=== PATIENT | male | born 1970 | race Hispanic/Latino ===

== ENCOUNTER 2016-11-23 15:03 | Inpatient (IN) | payer MEDICAID, OTHER ==
[2016-11-23 16:55] LABS: EOS # 0.4 K/uL (0.0-0.7); HEMOGLOBIN 14.2 g/dL (12.0-18.0); LYMPH # 3.3 K/uL (1.0-4.3); MONO # 0.8 K/uL (0.0-0.8); WHITE BLOOD COUNT 9.1 K/uL (4.8-10.8)
[2016-11-23 16:58] LABS: BASO % 0.5 % (0.0-2.0); LYMPH % 36.4 % (20.0-40.0); MEAN CELL VOLUME 97.5 fL (80.0-94.0); MEAN CORPUSCULAR HEMOGLOBIN 33.5 pg (27.0-31.0); MEAN CORPUSCULAR HGB CONC 34.4 g/dL (33.0-37.0); MEAN PLATELET VOLUME 9.6 fL (7.2-11.7); MONO % 8.7 % (0.0-10.0); NEUT # 4.6 K/uL (1.8-7.0); NEUT % 50.4 % (50.0-75.0); NRBC % 0.1 % (0.0-2.0); RBC 4.22 Mil/uL (4.40-5.90); RED CELL DISTRIBUTION WIDTH 13.3 % (11.5-14.5)
[2016-11-23 17:00] LABS: URINE BILIRUBIN NEGATIVE (NEGATIVE); URINE BLOOD NEGATIVE (NEGATIVE); URINE CLARITY Clear (Clear); URINE COLOR Yellow (YELLOW); URINE GLUCOSE (UA) NORMAL (Normal); URINE LEUKOCYTE ESTERASE NEG Leu/uL (Negative); URINE NITRATE NEGATIVE (NEGATIVE); URINE PROTEIN NEGATIVE (NEGATIVE)
[2016-11-23 17:04] LABS: ALBUMIN 4.4 g/dL (3.5-5.0)
[2016-11-23 17:06] LABS: GFR AFRICAN-AMERICAN > 60; GFR NON-AFRICAN AMERICAN > 60
[2016-11-23 17:07] LABS: ALB/GLOB RATIO 0.9 (1.0-2.1); ALT/SGPT 41 U/L (21-72); AST/SGOT 30 U/L (17-59); BLOOD UREA NITROGEN 11 mg/dL (9-20)
[2016-11-23 17:08] LABS: CALCIUM 9.2 mg/dl (8.6-10.4)
[2016-11-23 17:21] LABS: BENZODIAZEPINES, UR POSITIVE (NEGATIVE)
[2016-11-23 17:22] LABS: BARBITURATES, UR NEGATIVE (NEGATIVE)
[2016-11-23 17:26] LABS: OPIATES, UR POSITIVE (NEGATIVE)
[2016-11-23 17:27] LABS: PHENCYCLIDINE, UR NEGATIVE (NEGATIVE)
--- NOTE | 2016-11-23 18:21 | C.PDOC ---
History Of Present Illness Pt is here requesting detox from Alcohol and Heroin. Time Seen by Provider: 11/23/16 15:41 Chief Complaint (Nursing): Substance Abuse History Per: Patient History/Exam Limitations: intoxication Onset/Duration Of Symptoms: Days Current Symptoms Are (Timing): Still Present Suicide/Self Injury Attempted (Context): None Modifying Factor(s): Alcohol, Narcotics Severity: Moderate Associated Symptoms: denies: Suicidal Thoughts, Suicidal Plan Additional History Per: Prior Records Past Medical History Reviewed: Historical Data, Nursing Documentation, Vital Signs Vital Signs: Last Vital Signs Temp 98 F 11/23/16 15:13 Pulse 89 11/23/16 15:13 Resp 16 11/23/16 15:13 BP 114/78 11/23/16 15:13 Pulse Ox 95 11/23/16 18:21 - Medical History PMH: Anxiety, Hepatitis (Hep.C) - [facility] DETOXIFICATION SERVICES FOR SUBSTANCE ABUSE TREATMENT (02/11/16) INDIVIDUAL PSYCHOTHERAPY, SUPPORTIVE (02/11/16) Family History: States: Unknown Family Hx - Social History Hx Tobacco Use: Yes Hx Alcohol Use: Yes Hx Substance Use: Yes (IVDU Heroin) - Immunization History Hx Influenza Vaccination: No Hx Pneumococcal Vaccination: No Review Of Systems Constitutional: Negative for: Fever Cardiovascular: Negative for: Chest Pain Respiratory: Negative for: Shortness of Breath Gastrointestinal: Negative for: Vomiting Musculoskeletal: Negative for: Neck Pain Neurological: Negative for: Weakness, Seizures Physical Exam - Physical Exam Appears: Non-toxic, No Acute Distress Skin: Normal Color, Warm, Dry Head: Atraumatic, Normacephalic Eye(s): bilateral: PERRL, EOMI Neck: Normal ROM, Supple Cardiovascular: Rhythm Regular Respiratory: Normal Breath Sounds, No Accessory Muscle Use Gastrointestinal/Abdominal: Soft, No Tenderness Extremity: Normal ROM, Other (Track maldonado on arms) Neurological/Psych: Oriented x3, Normal Motor, Normal Sensation ED Course And Treatment - Laboratory Results Result Diagrams: 11/23/16 16:50 11/23/16 16:50 O2 Sat by Pulse Oximetry: 95 Pulse Ox Interpretation: Normal Progress Note: Pt is medically stable for detox admission. Disposition Counseled Patient/Family Regarding: Studies Performed, Diagnosis, Smoking Cessation - Disposition Disposition: HOSPITALIZED Disposition Time: 18:54 Condition: STABLE - Clinical Impression Clinical Impression: Alcohol use disorder, Opioid abuse Decision To Admit - Pt Status Changed To: Hospital Disposition Of: Inpatient - Admit Certification Admit to Inpatient:: After my assessment, the patient will require hospitalization for at least two midnights. This is because of the severity of symptoms shown, intensity of services needed, and/or the medical risk in this patient being treated as an outpatient. - InPatient: Physician Admission Certification: I certify that this patient requires 2 or more midnights of care for the following reason:: Detox. - . Bed Request Type: Detox Admitting Physician: Reagan Hood Patient Diagnosis: Alcohol use disorder, Opioid abuse
--- NOTE | 2016-11-23 19:34 | PCM.BM ---
<Myriam Goodean - Last Filed: 11/23/16 22:20> Treatment Plan Problems - Problems identified on initial assessmt opiate dependance Date Initiated: 11/23/16 Time Initiated: 19:32 Assessment reference: NA Status: Active Priority: 1 Problem 3 Date Initiated: 11/23/16 ineffective coping Date Initiated: 11/23/16 Time Initiated: 19:34 Assessment reference: NA Status: Active aalcohol dependance Date Initiated: 11/23/16 Time Initiated: 19:33 Assessment reference: NA Status: Active Priority: 2 Treatment assets and liabiliti Patient Assests: cooperative, ADL independent, cognitively intact, other Patient Liabilities: substance abuse - Milieu Protocol Maintain good personal hygiene: daily Encourage regular showers, daily Remind patient to perform daily oral care, daily Assist patient to perform ADL's Maintain personal safety: every shift Educate patient to report safety concerns to staff, every shift Monitor environment for contraband/sharps Medication safety: Monitor for expected outcome, potential side effects: every shift, Assess barriers to learning: every shift, Assess readiness for medication education: every shift <Wild Wyatt - Last Filed: 11/24/16 15:07> Treatment Plan Problems - Problems identified on initial assessmt opiate dependance Date Initiated: 11/23/16 Time Initiated: 19:32 Assessment reference: NA Status: Active Priority: 1 Problem 3 Date Initiated: 11/23/16 ineffective coping Date Initiated: 11/23/16 Time Initiated: 19:34 Assessment reference: NA Status: Active aalcohol dependance Date Initiated: 11/23/16 Time Initiated: 19:33 Assessment reference: NA Status: Active Priority: 2 Problem 2 Date Initiated: 11/23/16 Time Initiated: 19:33 Assessment reference: NA Status: Active Priority: 2 alcohol dependance Date Initiated: 11/23/16 - Diagnosis (1) Alcohol use disorder Status: Acute Interventions: 11/24/16 15:07 * Assess 7x/week regarding severity of withdrawal * Educate regarding risks, benefits, side effects and alternatives of medications * Use Motivational Interviewing for abstinence * Use CBT for relapse prevention * Medication management for withdrawal symptoms * Encourage medication assisted treatment * (2) Opioid abuse Status: Acute Interventions: 11/24/16 15:08 * Assess 7x/week regarding severity of withdrawal * Educate regarding risks, benefits, side effects and alternatives of medications * Use Motivational Interviewing for abstinence * Use CBT for relapse prevention * Medication management for withdrawal symptoms * Encourage medication assisted treatment * <Rosangela Meyer - Last Filed: 11/25/16 13:51> Family Contact Family involvement: German/SO not involved Family contact: Patient agrees to contact - Goals for Treatment Patient goals for treatment: Transition to Vivitrol shot for medication maintenance. Discharge/Continuing Care - Education Needs Education Needs: Patient Medication, Patient Diagnosis/Disease Process, Patient Coping Skills, Patient Anger Management skills, Patient Placement options, Patient Community resources - Discharge Discharge Criteria: Tolerates medication w/o severe side effects, Normal sleep pattern, No longer exhibiting s/s of withdrawal, Reduction of target symptoms Discharge to:: With Family - Treatment Team Participation Patient/Family/SO Statement: 11/25/16 13:50 "I wanna try Vivitrol" Discussed with Family/SO: No Was Patient/Family/SO present at Treatment Team Meeting: Yes
[2016-11-23] MEDS ORDERED: Buprenorphine Hydrochloride 2 mg SL ONE (20:15)
[2016-11-24] MEDS ORDERED: Buprenorphine Hydrochloride 2 mg SL ONE ×2 (01:10→02:10)
[2016-11-24] MEDS: Multiple Vitamins Tab PO SCH (10:43)
[2016-11-24] MEDS: Buprenorphine Hydrochloride 2 mg SL SCH (10:44)
--- NOTE | 2016-11-24 11:48 | PCM.PSYCH ---
Initial Psychiatric Evaluation - Initial Psychiatric Evaluation Type of Admission: Voluntary Legal Status: Capacity Chief Complaint (in patient's own words): "I want to detox from alcohol and heroin" History of Present Illness and Precipitating Events: The pt is seen, chart reviewed and case discussed. Mr Murray is a 46 yo male who presented to our ED requesting heroin and EtOH detox. Patient is currently experiencing opioid wxw sxs; he is shaking , yawning, sniffling, and complains of a severe headache. Patient states that about 6 months ago he relapsed with heroin use, and doesn't remember how long he was sober. Patient states he began abusing heroin at 26 years old, and averaged 10-15 bags/day. He also states that he drinks 2 pints/day of vodka, and unspecified amounts of wine and beer since he was a teenager. He's had 5-6 previous detox visits and 1 previous rehab attempt at the [facility] in [place]. Patient underwent 1 previous methadone treatment, at 90 mg dose, he states it was unsuccessful without specified reasons and quit the program a few years ago. Patient also states he tried Suboxone at 2x/day 8mg dose, but that it was unsuccessful due to legal issues with his physician and pharmacy. He denies hallucinations, suicidal/homicidal ideations. He denies depressive symptoms. He denies DT's or any seizure activity. Past Psychiatric Hx: Denies admissions or sergio attempt Other Medical Hx: - Hep C, untreated. Social and RADHA Hx: Lives in [place], smokes 1 pack of cigarettes/day; Denies cocaine, pcp, ecstasy, xananx, or marijuana usage; lives with his mother ; chemo; currently single and ; 2 children of 20 yrs old and 7 yrs old, the 7 yr old lives with patients sister; has 1 brother and 1 sister. Family Hx: brother abused EtOH and Heroin. Previous attempts at bringing brother to detox program were unsuccessful. Family Pyschiatric Hx: None reported Current Medications: Active Medications Generic Name Dose Route Start Last Admin Trade Name Freq PRN Reason Stop Dose Admin Buprenorphine HCl 8 mg 11/24/16 10:00 11/24/16 10:44 Subutex SL 11/28/16 09:59 8 mg DAILY AMINTA Administration Taper Chlordiazepoxide 25 mg 11/24/16 00:00 11/24/16 06:32 Librium PO 11/27/16 23:59 Not Given Q6 AMINTA Taper Chlordiazepoxide 25 mg 11/23/16 20:05 Librium PO Q4H PRN Alcohol Withdrawal Clonidine HCl 0.1 mg 11/24/16 10:00 Catapres PO Q8 PRN COWS Score More or Equal to 5 Folic Acid 1 mg 11/24/16 10:15 11/24/16 10:43 Folic Acid PO 1 mg DAILY AMINTA Administration Multivitamins 1 tab 11/24/16 10:15 11/24/16 10:43 Hexavitamin PO 1 tab DAILY AMINTA Administration Thiamine HCl 100 mg 11/24/16 10:15 11/24/16 10:43 Vitamin B1 Tab PO 100 mg DAILY AMINTA Administration Trazodone HCl 100 mg 11/24/16 20:05 Desyrel PO HS PRN Insomnia Past Psychiatric History - Past Psychiatric History Previous Treatment History: None Pertinent Medical Hx (Current Medical&Sleep Prob, Allergies): Allergies Allergy/AdvReac Type Severity Reaction Status Date / Time No Known Allergies Allergy Verified 11/23/16 15:16 Gabapentin [Neurontin] 400 mg PO TID #90 cap 02/16/16 Mirtazapine [Remeron] 30 mg PO HS #30 tab 02/16/16 QUEtiapine [Seroquel] 100 mg PO HS #30 tab 02/16/16 Sertraline [Zoloft] 100 mg PO DAILY #30 tab 02/16/16 Review of Systems - Constitutional Constitutional: Chills - EENT Additional comments: yawning, tearing - Neurological Neurological: As Per HPI, Headaches. absent: Convulsions, Tremor - Psychiatric Psychiatric: As Per HPI, Abnormal Sleep Pattern, Anxiety, Difficulty Concentrating, Irritability. absent: Hallucinations, Homicidal Ideation, Hopelessness, Suicidal Ideation Mental Status Examination - Personal Presentation Personal Presentation: Looks stated age - Affect Affect: Constricted - Motor Activity Motor Activity: Calm - Reliability in Providing Information Reliability in Providing Information: Fair Additional comments: Difficulty remembering periods of sobriety - Speech Speech: Disorganized - Mood Mood: Neutral - Formal Thought Process Formal Thought Process: No Impairment - Obsessions/Compulsions Obsessions: No Compulsions: No - Cognitive Functions Orientation: Person, Place, Situation, Time Sensorium: Drowsy Attention/Concentration: Easily distracted Abstract Thinking: Whitt Estimate of Intelligence: Average Judgement: Intact, as evidence by: Insight regarding need for hospitalization Memory: Recent intact, as evidence by: Ability to recall events of the day, Remote intact, as evidenced by: Abilit to recall sig. life events - Strength & Assets Inventory Strength & Assets Inventory: Cooperative - Limitations Limitations: Living alone DSM 5 DX - DSM 5 DSM 5 Diagnosis: Opioid withdrawal Opioid use disorder - severe Alcohol withdrawl Alcohol use disorder - severe - Recommended/Plan of Treatment Treatment Recommendations and Plan of Treatment: Subutex detox for opioids Librium detox for alcohol gabapentin for augmentation [place] and CBT Attend groups and activities Support and psychoeducation Consider MAT Refer to IOP and rehab Hep C f/u with GI 32 min Projected ELOS: 4 days Prognosis: Good with tx course - Smoking Cessation Smoking Cessation Initiated: No
[2016-11-25] MEDS: Multiple Vitamins Tab PO SCH (10:07)
[2016-11-25] MEDS: Buprenorphine Hydrochloride 2 mg SL SCH (10:11)
--- NOTE | 2016-11-25 12:35 | PCM.PYCHPN ---
Psychiatric Progress Note - Psychiatric Progress Note Patient seen today, length of contact: 16 min Patient Chief Complaint: "I am still withdrawing!" Problems Identified/Issues Discussed: The pt is seen, chart reviewed, case discussed with staff. Support given, CBT and ME used briefly No new symptoms reported, improving slowly and needs more time No SEs from medications, risks discussed. After care discussed briefly b/c he does not want to engage in conversations yet. Still in bed, slightly irate. Medication Change: Yes (Detox changes daily) Medical Record Reviewed: Yes Mental Status Examination - Cognitive Function Orientation: Person, Place, Situation, Time Memory: Intact Attention: Poor Concentration: Poor Association: WNL Fund of Knowledge: WNL - Mood Mood: Anxious, Other (irate) - Affect Affect: Constricted - Speech Speech: Appropriate - Formal Thought Process Formal Thought Process: No Impairment - Suicidal Ideation Suicidal Ideation: No - Homicidal Ideation Homicidal Ideation: No Goal/Treatment Plan - Goal/Treatment Plan Need for Continued Stay: Discharge may exacerbated symptoms, Severe functional impairment Progress Toward Problem(s) and Goals/Treatment Plan: Subutex detox for opioids Librium detox for alcohol gabapentin for augmentation [place] and CBT Attend groups and activities Support and psychoeducation Consider MAT Refer to IOP and rehab Hep C f/u with GI Estimated Date of D/C: 11/27/16
[2016-11-26] MEDS ORDERED: Buprenorphine Hydrochloride 2 mg SL PRN (08:47)
--- NOTE | 2016-11-26 08:47 | PCM.PYCHPN ---
Psychiatric Progress Note - Psychiatric Progress Note Patient seen today, length of contact: 17 min Patient Chief Complaint: "I can't sleep, I'm in pain" Problems Identified/Issues Discussed: The pt is seen, chart reviewed, case discussed with staff. c/o back pain, insomnia, withdrawal sxs Remeron added as it worked in the past Flexeril prn added and one extra dose of Sbx if needed MD and CBt used After care discussed Improving slowly Medication Change: Yes (Detox changes daily) Medical Record Reviewed: Yes Mental Status Examination - Cognitive Function Orientation: Person, Place, Situation, Time Memory: Intact Attention: Poor Concentration: Poor Association: WNL Fund of Knowledge: WNL - Mood Mood: Anxious, Other (irate) - Affect Affect: Constricted - Speech Speech: Appropriate - Formal Thought Process Formal Thought Process: No Impairment - Suicidal Ideation Suicidal Ideation: No - Homicidal Ideation Homicidal Ideation: No Goal/Treatment Plan - Goal/Treatment Plan Need for Continued Stay: Discharge may exacerbated symptoms, Severe functional impairment Progress Toward Problem(s) and Goals/Treatment Plan: Subutex detox for opioids Librium detox for alcohol gabapentin for augmentation, increased Remeron for insomnia and depressive sxs MD and CBT Attend groups and activities Support and psychoeducation Consider MAT Refer to IOP and rehab Hep C f/u with GI Estimated Date of D/C: 11/27/16
[2016-11-26] MEDS: Buprenorphine Hydrochloride 2 mg SL SCH (09:34)
[2016-11-26] MEDS: Multiple Vitamins Tab PO SCH (09:41)
[2016-11-27] MEDS: Multiple Vitamins Tab PO SCH (10:01)
[2016-11-27] MEDS: Buprenorphine Hydrochloride 2 mg SL SCH (10:03)
--- NOTE | 2016-11-27 14:12 | PCM.PYCHPN ---
Psychiatric Progress Note - Psychiatric Progress Note Patient seen today, length of contact: 17 min Patient Chief Complaint: "I feel a little better today" Problems Identified/Issues Discussed: The pt is seen, chart reviewed, case discussed with staff. Improving slowly. Withdrawal symptoms are less today. Rameron helped him sleep, will keep on Flexeril prn added and one extra dose of Sbx if needed DC and CBt used After care discussed Medication Change: Yes (Detox changes daily) Medical Record Reviewed: Yes Mental Status Examination - Cognitive Function Orientation: Person, Place, Situation, Time Memory: Intact Attention: Poor Concentration: Poor Association: WNL Fund of Knowledge: WNL - Mood Mood: Anxious - Affect Affect: Constricted - Speech Speech: Appropriate - Formal Thought Process Formal Thought Process: No Impairment - Suicidal Ideation Suicidal Ideation: No - Homicidal Ideation Homicidal Ideation: No Goal/Treatment Plan - Goal/Treatment Plan Need for Continued Stay: Discharge may exacerbated symptoms, Severe functional impairment Progress Toward Problem(s) and Goals/Treatment Plan: Subutex detox for opioids Librium detox for alcohol gabapentin for augmentation, increased Remeron for insomnia and depressive sxs DC and CBT Attend groups and activities Support and psychoeducation Consider MAT Refer to IOP and rehab Hep C f/u with GI Estimated Date of D/C: 11/28/16 If changed, why: some withdrawal symptoms still present
[2016-11-27 15:42] VITALS: RESP 18
[2016-11-28] MEDS: Multiple Vitamins Tab PO SCH (09:02)
[2016-11-28 09:05] VITALS: BP 110/69; PULSE 82; TEMP 99; O2SAT 98
--- NOTE | 2016-11-28 09:45 | PCM.PYCHDC ---
Mental Status Examination - Mental Status Examination Orientation: Person, Place, Situation, Time Memory: Intact Mood: Anxious Affect: Constricted Speech: Appropriate Attention: WNL Concentration: Poor Association: WNL Fund of Knowledge: WNL Formal Thought Process: No Impairment Suicidal Ideation: No Current Homicidal Ideation?: No Discharge Summary - Discharge Note Reason for Hospitalization: Compliant Psychiatric History (includes Medical, Family, Personal Hx): Anxiety Consultations:: List each consultation separately and include: 1. Reason for request. 2. Findings. 3. Follow-up Summary of Hospital Course include:: 1. Description of specific treatment plan utilized for patients during their course of treatmen. 2. Summarize the time- course for resolution of acute symptoms and/or regressed behaviors. 3. Describe issues identified and worked on during hospitalization. 4. Describe medication utilized. 5. Describe medical problems identified and treated. 6. Reassessment of suicide risk Summary of Hospital Course: The pt is seen, chart reviewed and case discussed. Mr Murray is a 46 yo male who presented to our ED requesting heroin and EtOH detox. Patient is currently experiencing opioid wxw sxs; he is shaking , yawning, sniffling, and complains of a severe headache. Patient states that about 6 months ago he relapsed with heroin use, and doesn't remember how long he was sober. Patient states he began abusing heroin at 26 years old, and averaged 10-15 bags/day. He also states that he drinks 2 pints/day of vodka, and unspecified amounts of wine and beer since he was a teenager. He's had 5-6 previous detox visits and 1 previous rehab attempt at the [facility] in [place]. Patient underwent 1 previous methadone treatment, at 90 mg dose, he states it was unsuccessful without specified reasons and quit the program a few years ago. Patient also states he tried Suboxone at 2x/day 8mg dose, but that it was unsuccessful due to legal issues with his physician and pharmacy. He denies hallucinations, suicidal/homicidal ideations. He denies depressive symptoms. He denies DT's or any seizure activity. Past Psychiatric Hx: Denies admissions or sergio attempt Other Medical Hx: - Hep C, untreated. Social and RADHA Hx: Lives in [place], smokes 1 pack of cigarettes/day; Denies cocaine, pcp, ecstasy, xananx, or marijuana usage; lives with his mother ; chemo; currently single and ; 2 children of 20 yrs old and 7 yrs old, the 7 yr old lives with patients sister; has 1 brother and 1 sister. Family Hx: brother abused EtOH and Heroin. Previous attempts at bringing brother to detox program were unsuccessful. Family Pyschiatric Hx: None reported Hospital course: The pt was admitted and started on treatment with psychotherapy, support, psychoeducation and medications. MT and CBT used. The pt attended groups and activities, as well as milieu therapy. All the risks and benefits of medications are discussed and the patient understood and agreed. After care discussed with the patient. He chose to go to [facility] The patient improved with the treatment provided and discharged as planned. The first 2 days he was in bed a lot with lots of wdw sxs. He also had back pain a lot - Final Diagnosis (DSM 5) Condition upon Discharge: STABLE DSM 5: Opioid withdrawal Opioid use disorder - severe Alcohol withdrawl Alcohol use disorder - severe Disposition: HOME/ ROUTINE Follow-up Treatment Plan: Attend [facility] as planned Continue below medications after discharge. Use relapse prevention skills. Return to ER or call 911 if suicidal, homicidal or symptoms relapse. Stay away from stress, alcohol and drugs. Use relaxation techniques. See primary doctor once a year and get labs. Consider MAT Prescriptions/Medication Reconciliation: Cyclobenzaprine [Flexeril] 10 mg PO BID PRN #60 tab PRN Reason: muscle spasms Gabapentin [Neurontin] 300 mg PO TID #90 cap Mirtazapine [Remeron] 15 mg PO HS #30 tab traZODone [Desyrel] 100 mg PO HS PRN #30 tab PRN Reason: Insomnia - Smoking Cessation Smoking Cessation Medication prescribed: No - Antipsychotic Medications Pt discharged on 2 or more routine antipsychotic medications: No
== END 2016-11-28 10:00 | disposition home or self-care (01) | DRG 744 ==
LOC: C.ER 15:03 → C.7D 18:56
PROC: HZ2ZZZZ Detoxification Services for Substance Abuse Treatment (ICD-10-PCS; principal; 2016-11-23)
PROC: HZ59ZZZ Individual Psychotherapy for Substance Abuse Treatment, Supportive (ICD-10-PCS; 2016-11-23)
PROC: HZ46ZZZ Group Counseling for Substance Abuse Treatment, Psychoeducation (ICD-10-PCS; 2016-11-23)
DX: F11.23 Opioid dependence with withdrawal (principal); F10.230 Alcohol dependence with withdrawal, uncomplicated; B18.2 Chronic viral hepatitis C; F17.210 Nicotine dependence, cigarettes, uncomplicated